=== PATIENT | female | born 1955 | race Caucasian/White ===

== ENCOUNTER 2020-11-11 16:33 | Inpatient (IN) | payer MEDICARE, OTHER ==
[~2020-11-11] VITALS: Ht 172.7 cm; Wt 66.0 kg
[2020-11-11 18:39] LABS: HEMOGLOBIN 14.1 gm/dl (12.3-15.3); RED BLOOD COUNT 4.68 M/UL (4.00-5.10); WHITE BLOOD COUNT 13.9 K/UL (4.5-11.0)
[2020-11-11 19:11] LABS: BUN/CREATININE RATIO 18 (0-10)
[2020-11-12 05:42] LABS: WHITE BLOOD COUNT 3.2 K/UL (4.5-11.0)
[2020-11-12 05:43] LABS: HEMOGLOBIN 11.2 gm/dl (12.3-15.3); RED BLOOD COUNT 3.73 M/UL (4.00-5.10)
[2020-11-12 21:34] LABS: RED BLOOD COUNT 3.7 M/UL (4.00-5.10); WHITE BLOOD COUNT 20.8 K/UL (4.5-11.0)
[2020-11-13 03:44] LABS: ACINETOBACTER BAUMANNII Not Detected (Negative); CANDIDA ALBICANS Not Detected (Negative); CANDIDA KRUSEI Not Detected (Negative); CANDIDA TROPICALIS Not Detected (Negative); ENTEROCOCCUS Not Detected (Negative); ESCHERICHIA COLI Not Detected (Negative); HAEMOPHILUS INFLUENZAE Not Detected (Negative); KLEBSIELLA OXYTOCA Not Detected (Negative); KLEBSIELLA PNEUMONIAE Not Detected (Negative); KPC-CARBAPENEM-RESISTANCE GENE Not Detected (Negative); PROTEUS Not Detected (Negative); PSEUDOMONAS AERUGINOSA Not Detected (Negative); SERRATIA MARCESANS Not Detected (Negative); STAPHYLOCOCCUS Not Detected (Negative); STAPHYLOCOCCUS AUREUS Not Detected (Negative); STREP AGALACTIAE (GROUP B) Not Detected (Negative); STREP PYOGENES (GROUP A) Not Detected (Negative); STREPTOCOCCUS Not Detected (Negative); mecA (METHICILLIN RESIST GENE Not Detected (Negative); vanA/B (VANCOMYCIN RESIST GENE Not Detected (Negative)
[2020-11-13 04:59] LABS: HEMOGLOBIN 11.1 gm/dl (12.3-15.3); RED BLOOD COUNT 3.76 M/UL (4.00-5.10)
[2020-11-13 05:25] LABS: BUN/CREATININE RATIO 16 (0-10)
[2020-11-14 05:11] LABS: HEMOGLOBIN 10.3 gm/dl (12.3-15.3); RED BLOOD COUNT 3.51 M/UL (4.00-5.10)
[2020-11-14 05:21] LABS: WHITE BLOOD COUNT 14.5 K/UL (4.5-11.0)
[2020-11-14 05:38] LABS: BUN/CREATININE RATIO 23 (0-10)
[2020-11-15 05:07] LABS: RED BLOOD COUNT 3.68 M/UL (4.00-5.10); WHITE BLOOD COUNT 14.4 K/UL (4.5-11.0)
[2020-11-15 05:33] LABS: BUN/CREATININE RATIO 24 (0-10)
[2020-11-16 05:29] LABS: HEMOGLOBIN 10.1 gm/dl (12.3-15.3); RED BLOOD COUNT 3.44 M/UL (4.00-5.10); WHITE BLOOD COUNT 10.8 K/UL (4.5-11.0)
[2020-11-16 05:58] LABS: BUN/CREATININE RATIO 27 (0-10)
[2020-11-19 10:30] LABS: HEMOGLOBIN 11.3 gm/dl (12.3-15.3); RED BLOOD COUNT 3.84 M/UL (4.00-5.10); WHITE BLOOD COUNT 14.5 K/UL (4.5-11.0)
[2020-11-19 10:55] LABS: BUN/CREATININE RATIO 11 (0-10)
[2020-11-21 04:49] LABS: HEMOGLOBIN 9.9 gm/dl (12.3-15.3); WHITE BLOOD COUNT 17.1 K/UL (4.5-11.0)
[2020-11-21 04:57] LABS: RED BLOOD COUNT 3.36 M/UL (4.00-5.10)
[2020-11-21 05:22] LABS: BUN/CREATININE RATIO 11 (0-10)
--- NOTE | 2020-11-21 18:49 | NUR ---
PATIENT HAS BEEN USING HER IS INSTRUCTED AND REACHES TO 500 EVERY HOUR WHILE AWAKE AND PERFORM UP TO 5 X PER HOUR. PATIENT COMPLIANT
[2020-11-22] MEDS ORDERED: MAGIC MOUTHWASH PO (13:48)
[2020-11-22] MEDS ORDERED: ZOFRAN 4 MG TAB4 MG PO (13:48)
--- NOTE | 2020-11-22 16:45 | NUR ---
CONTACTED [employer] [facility] TO GIVE REPORTS SEVERAL TIMES. STILL NOT CALL BACK.
[2021-02-17] MEDS ORDERED: NAPROXEN500 MG PO (09:07)
[2021-02-17] MEDS ORDERED: HYDROCODON-ACE1 EAC2 PO (09:07)
== END 2020-11-22 17:31 | disposition home or self-care (01) | DRG 853 ==
LOC: ER1 16:33 → CDU 21:51 → CCU 11-12 03:55 → PROG CARE 11-16 17:55 → MED SURG 4 11-20 18:54
PROVIDERS: Internal Medicine; Physician Assistant; Surgery; ADMIT Surgery
PROC: 0DTM0ZZ Resection of Descending Colon, Open Approach (ICD-10-PCS; 2020-11-11)
PROC: 0D1M0Z4 Bypass Descending Colon to Cutaneous, Open Approach (ICD-10-PCS; 2020-11-11)
PROC: 0DTP0ZZ Resection of Rectum, Open Approach (ICD-10-PCS; 2020-11-11)
PROC: B548ZZA Ultrasonography of Superior Vena Cava, Guidance (ICD-10-PCS; 2020-11-11)
PROC: 02HV33Z Insertion of Infusion Device into Superior Vena Cava, Percutaneous Approach (ICD-10-PCS; principal; 2020-11-11 00:34)
DX: A41.9 Sepsis, unspecified organism (principal); R65.21 Severe sepsis with septic shock; Z20.822 Contact with and (suspected) exposure to COVID-19; I10 Essential (primary) hypertension; E86.0 Dehydration; K21.9 Gastro-esophageal reflux disease without esophagitis; E87.6 Hypokalemia; F17.210 Nicotine dependence, cigarettes, uncomplicated; R94.31 Abnormal electrocardiogram [ECG] [EKG]; K66.8 Other specified disorders of peritoneum; K57.90 Diverticulosis of intestine, part unspecified, without perforation or abscess without bleeding
CPT/HCPCS: 36415; 36600; 51702; 71045; 80048; 80053; 81001; 82550; 82553; 82803; 83605; 83690; 83735; 83874; 84132; 84484; 85025; 85027; 87040; 87075; 87077; 87086; 87150; 87635; 88341; 88342; 93005; 94002; 94640; 94664; 94760; 96365; 96366; 96375; 96376; 97110-GP-CQ; 97116-GP-CQ; 97161; 97164; 97165; 97530; 99285; C9113; J0131; J0360; J1170; J1650; J1885; J1940; J2001; J2270; J2370; J2405; J2543; J2704; J3010; J3475; J3480; J7030; J7040; J7120; P9045; P9047; Q9967

== ENCOUNTER → 2021-02-17 | Day surgery (SDC) | payer MEDICARE, OTHER ==
[~2021-02-17] MED LIST: HYDROCODON-ACE1 EAC2 PO; MAGIC MOUTHWASH PO; NAPROXEN500 MG PO; ZOFRAN 4 MG TAB4 MG PO
== END | disposition home or self-care (01) ==
LOC: OR 08:24
PROVIDERS: Surgery
PROC: 0DBF8ZX Excision of Right Large Intestine, Via Natural or Artificial Opening Endoscopic, Diagnostic (ICD-10-PCS; 2021-02-17)
PROC: 0DBG8ZX Excision of Left Large Intestine, Via Natural or Artificial Opening Endoscopic, Diagnostic (ICD-10-PCS; principal; 2021-02-17 10:15)
DX: Z12.11 Encounter for screening for malignant neoplasm of colon (principal); D12.4 Benign neoplasm of descending colon; D12.2 Benign neoplasm of ascending colon; K57.30 Diverticulosis of large intestine without perforation or abscess without bleeding; I10 Essential (primary) hypertension; F17.210 Nicotine dependence, cigarettes, uncomplicated; J44.9 Chronic obstructive pulmonary disease, unspecified; G89.29 Other chronic pain; M54.9 Dorsalgia, unspecified; Z20.822 Contact with and (suspected) exposure to COVID-19; Z85.038 Personal history of other malignant neoplasm of large intestine; Z93.3 Colostomy status; Z79.899 Other long term (current) drug therapy
CPT/HCPCS: J2704; J7030

== ENCOUNTER 2022-05-29 11:41 | Emergency (ER) | payer MEDICARE, OTHER ==
[2022-05-29 12:36] LABS: HEMOGLOBIN 14.8 gm/dl (12.3-15.3); RED BLOOD COUNT 4.85 M/UL (4.00-5.10); WHITE BLOOD COUNT 13.9 K/UL (4.5-11.0)
[2022-05-29 13:07] LABS: BUN/CREATININE RATIO 9 (0-10)
== END 2022-05-29 20:25 | disposition left against medical advice (07) ==
LOC: ER1 11:41
PROVIDERS: Emergency Medicine
DX: I63.512 Cerebral infarction due to unspecified occlusion or stenosis of left middle cerebral artery (principal); I10 Essential (primary) hypertension; F17.210 Nicotine dependence, cigarettes, uncomplicated; R29.701 NIHSS score 1
CPT/HCPCS: 36600; 70450; 70496; 70498; 80053; 80307; 81001; 82550; 82553; 82803; 82962; 84484; 85025; 87086; 93005; 99285; J1630; J2250; Q9967